=== PATIENT | male | born 1950 | race Caucasian/White ===

== ENCOUNTER 2019-12-27 14:29 | Emergency (ER) | payer MEDICARE, OTHER ==
[~2019-12-27] VITALS: Ht 170.2 cm; Wt 76.2 kg
[2019-12-27] MEDS ORDERED: SIMVASTATIN80 MG PO (14:43)
[2019-12-27] MEDS ORDERED: LANTUS SUBQ (14:43)
[2019-12-27] MEDS ORDERED: BP MED (14:45)
[2019-12-27] MEDS ORDERED: NORCO 5-325 TA1 EAC2 PO (16:41)
[2019-12-27] MEDS ORDERED: IBUPROFEN 600600 M1 PO (16:41)
[2019-12-27 17:01] VITALS: BP 122/78
== END 2019-12-27 17:01 | disposition home or self-care (01) ==
LOC: M.ERS 14:29
DX: M25.561 Pain in right knee (principal); E10.9 Type 1 diabetes mellitus without complications; Z79.899 Other long term (current) drug therapy; Z79.4 Long term (current) use of insulin; W17.2XXA Fall into hole, initial encounter; Y93.89 Activity, other specified; Y92.89 Other specified places as the place of occurrence of the external cause; Y99.8 Other external cause status

== ENCOUNTER → 2020-01-14 | Outpatient (CLI) | payer MEDICARE, OTHER ==
[~2020-01-14] MED LIST: BP MED; IBUPROFEN 600600 M1 PO; LANTUS SUBQ; NORCO 5-325 TA1 EAC2 PO; SIMVASTATIN80 MG PO
== END ==
LOC: M.MRI 07:52
PROVIDERS: ATTEND Orthopaedic Surgery
DX: S83.221A Peripheral tear of medial meniscus, current injury, right knee, initial encounter (principal); M25.461 Effusion, right knee; M22.2X1 Patellofemoral disorders, right knee

== ENCOUNTER → 2020-01-21 | Outpatient (CLI) | payer MEDICARE, OTHER ==
[~2020-01-21] MED LIST changes: +LISINOPRIL-HCT1 EAC1 PO; +NOVOLOG100 UNIT/1 SUBQ; +SIMVASTATIN40 MG PO
== END ==
LOC: M.LAB 08:18
PROVIDERS: ATTEND Orthopaedic Surgery
DX: Z01.812 Encounter for preprocedural laboratory examination (principal); Z20.828 Contact with and (suspected) exposure to other viral communicable diseases

== ENCOUNTER → 2020-01-24 | Day surgery (SDC) | payer MEDICARE, OTHER ==
[2020-01-24 10:00] LABS: ABSOLUTE BASOPHILS 0.1 thou/uL (0.0-0.2); ABSOLUTE EOSINOPHILS 0.2 thou/uL (0.0-0.7); ABSOLUTE LYMPHOCYTES 2.5 thou/uL (0.8-5.3); ABSOLUTE MONOCYTES 0.7 thou/uL (0.0-1.2); ABSOLUTE NEUTROPHILS 3.9 thou/uL (1.6-8.1); BASOPHILS 0.8 %; HEMATOCRIT 46.2 % (42.0-52.0); HEMOGLOBIN 15.9 gm/dL (14.0-18.0); MCH 29.8 pg (26.0-34.0); MCHC 34.3 g/dL (28.0-37.0); MCV 86.8 fL (80.0-100.0); MONOCYTES 9.5 %; MPV 8.2 fl. (7.2-11.1); NUCLEATED RBCS 0 /100WBC; PLATELET COUNT* 159 thou/uL (150-400); POLYS 52.7 %; RBC 5.32 mil/uL (4.50-6.00); RDW-CV 13.1 % (10.5-14.5); WBC 7.4 thou/uL (4.0-11.0)
[2020-01-24 10:22] LABS: CREATININE 1.1 mg/dL (0.6-1.3); POTASSIUM 3.3 mmol/L (3.5-5.1)
[2020-01-24 10:56] LABS: ESR (SEDRATE) 2 mm/hr (0-20)
--- NOTE | 2020-01-27 12:11 | EKG ---
[place] [address] ELECTROCARDIOGRAM REPORT Name: ROSA MARIA WELSH Room: [facility].#: [id number] Admission: 01/24/20 Attend Phys: Grupo Hurt DO Discharge: Date of : 52 Date of Service: 01/24/20946 Report #: [id number] THIS REPORT FOR: //name// [facility] Test Date: 2020-01-24 Test Time: 09:47:50 Pat Name: ROSA MARIA WELSH Department: Room: Gender: Supervisor Records Change: ALC : 1950 Requested By: Grupo Hurt Order Number: [id number] Alissa MD: Chris Lee Measurements Intervals [place] Rate: 82 P: 78 [place]: 134 QRS: 61 QRSD: 88 T: 42 QT: 378 QTc: 442 Interpretive Statements Sinus rhythm nonspecific st changes No previous ECG available for comparison Electronically Signed On 01-27-2020 12:11:25 [employer] by Chris Lee [email or web address] <ELECTRONICALLY SIGNED> By: Chris Lee MD, [facility] 01/27/20 1211 0947 09 Chris Lee MD, FACC /EPI
--- NOTE | 2020-01-29 19:42 | OP ---
[address] [address] OPERATIVE REPORT Name: ROSA MARIA WELSH Room: [facility].#: [id number] Admission: 01/24/20 Attend Phys: Grupo Hurt DO Discharge: Date of : 52 Report #: [id number] THIS REPORT FOR: //name// cc: Fidel Canales John E. DO ~ CC: Grupo Acuna DATE OF SERVICE: 01/24/2020 PREOPERATIVE DIAGNOSES: Medial meniscus tear of the right knee and subchondral insufficiency fracture of the medial femoral metaphyseal and medial tibial metaphyseal region. POSTOPERATIVE DIAGNOSIS: Medial meniscus tear of the right knee and subchondral insufficiency fracture of the medial femoral metaphyseal and medial tibial metaphyseal region. SURGERY PERFORMED: 1. Right knee arthroscopic posterior horn medial meniscectomy, partial. 2. Subchondroplasty to the medial femur metaphyseal region and the medial tibia metaphyseal region. SURGEON: Grupo Hurt DO BELLHOP: Dr. Biggs. ANESTHESIA: General anesthetic and local anesthetic. ANTIBIOTICS: Did receive Ancef 2 grams IV piggyback preoperatively. SPECIMENS: None. COMPLICATIONS: None. DRAINS: None. ESTIMATED BLOOD LOSS: 5 mL. He does have photographs intraoperatively. GROSS FINDINGS: Correlate with the posterior horn of the medial meniscus complex tear that was easily resected. His ACL and lateral meniscus intact. Very minimal arthritic changes were noted throughout the knee. The patient's MRI definitely correlated with a subchondral fractures otherwise and the [address] [address] OPERATIVE REPORT Name: ROSA MARIA WELSH Room: [facility].R.#: [id number] Admission: 01/24/20 Attend Phys: Grupo Hurt DO Discharge: Date of : 52 Report #: [id number] intraoperative photographs demonstrate excellent subchondroplasty performed on both the femur and the tibia. SURGERY IN DETAIL: The patient was taken to the operating room and placed on table, given the benefit of general anesthetic. She had a well-padded tourniquet placed high on his right leg. Leg was placed in knee tanner in standard fashion. Gentleman underwent a chlorhexidine prep and sterile draping for right leg surgery. Surgery began at this point in time with making a standard arthroscopic porthole incision after the timeout was called and verified. Once it was verified, I did make the incision laterally, put the scope in the inferolateral portal, examined the hole and the probed structures. Found the medial meniscus tear easily and resected it through a medial porthole with a basket and a shaver blade. Once this was accomplished, I looked around the knee for any other unusual findings, did not find any. So, I removed the scope after removed as much water from the knee as could be, and prepared for subchondroplasty. Using the Shola grafting material at this point in time, I used the trocar to enter the metaphyseal region using C-arm with guidance and then I injected 4 mL of graft into that region, again verifying the placement with the C-arm throughout surgery. I now moved up to the femoral side to the medial femoral condyle, appropriately put the trocar through that area and injected 4 mL of graft into that same region. Surgery continued then with placing the arthroscope back in the joint proper. Examination was begun for any areas where there might be any residual calcium phosphate in the knee and there was none found. I copiously irrigated the knee one last time, closed this incision with 4-0 nylon in simple fashion. Xeroform, 4 x 4s, Kerlix, soft roll, Ufad wrap dressing was applied. Transferred off the table, taken to recovery in stable condition. I attest I was present for all critical aspects of surgery. Needle, instrument, sponge counts were correct. <ELECTRONICALLY SIGNED> By: Grupo Hurt DO 01/29/201941 1119 1130Grupo Hurt DO /nt
== END | disposition home or self-care (01) ==
LOC: M.SUR 05:24
PROVIDERS: ATTEND Orthopaedic Surgery
DX: M25.561 Pain in right knee (principal); M23.221 Derangement of posterior horn of medial meniscus due to old tear or injury, right knee; M84.361A Stress fracture, right tibia, initial encounter for fracture; M84.351A Stress fracture, right femur, initial encounter for fracture; E10.9 Type 1 diabetes mellitus without complications; Z98.890 Other specified postprocedural states; Z79.899 Other long term (current) drug therapy; Z79.4 Long term (current) use of insulin; X58.XXXA Exposure to other specified factors, initial encounter; Y93.89 Activity, other specified; Y92.89 Other specified places as the place of occurrence of the external cause; Y99.8 Other external cause status